=== PATIENT | male | born 1955 | race Caucasian/White ===

== ENCOUNTER 2019-03-20 09:45 | Day surgery (SDC) | payer BC ==
[2019-03-16 10:56] VITALS: BMI 24.3
[~2019-03-20 09:45] MED LIST: LACTATED RINGERS 1,000 ML IV SCH
[2019-03-20 10:59] VITALS: RESP 16; TEMP 98.4
[2019-03-20] MEDS ORDERED: LIDOCAINE 1% 20 ML VIAL (10MG/ML) FOR IV START INTRADERMA ONE (11:03)
[2019-03-20] MEDS ORDERED: PROPOFOL 10 MG/ML 20 ML VIAL IV ONE (11:25)
--- NOTE | 2019-03-20 12:13 | P.PCN ---
Date of Procedure: 03/20/19 Description of Procedure: BRIEF HISTORY: Patient is a 63-year-old pleasant male scheduled for an elective colonoscopy as a part of screening for malignant neoplasm colon. Patient reports last colonoscopy was 7-8 years ago. No family history of colon cancer, change in bowel habits or blood per rectum. PROCEDURE PERFORMED: Colonoscopy with polypectomy. PREOPERATIVE DIAGNOSIS: Screening for malignant neoplasm of the colon, last colonoscopy 7-8 years ago and normal per the patient's recollection. ESTIMATED BLOOD LOSS: Minimal. IV sedation per Anesthesia. PROCEDURE: After informed consent was obtained, the patient, was brought into the endoscopy unit. IV sedation was administered by Anesthesia under continuous monitoring. Digital rectal examination was normal. Initially the Olympus CF-190 flexible video colonoscope was then inserted in the rectum, gradually advanced into the c ecum without any difficulty. Careful examination was performed as the scope was gradually being withdrawn. Ileocecal valve and the appendiceal orifice were visualized and appeared normal, the terminal ileum intubated and appeared normal as well. Prep was excellent. Mucosa of the cecum, ascending colon, transverse colon, descending colon, sigmoid colon, and rectum appeared normal. A few scattered diverticula were noted in the sigmoid colon. 2 small transverse colon polyps measuring 5 and 6 mm removed with cold snare polypectomy. 2 diminutive descending colon polyps removed with cold forcep polypectomy measuring 2 and 3 mm. 2 diminutive rectal polyps measuring 1 and 2 mm with cold forcep polypectomy. Retroflexion was performed in the rectum and no lesions were seen. The patient tolerated the procedure well. IMPRESSION: 4 diminutive polyps removed with cold forcep polypectomy from the rectum to the descending colon. 2 diminutive transverse colon polyps measuring 5 and 6 mm removed with cold snare polypectomy. Mild sigmoid diverticulosis. RECOMMENDATIONS: Findings of this examination were discussed with the patient and his family. Okay to resume diet and medications. Await pathology from polypectomy. Anticipate repeat colonoscopy in 3-5 years pending pathology from polypectomies.
[2019-03-20 12:30] VITALS: BP 120/70; PULSE 70
== END 2019-03-20 12:46 | disposition home or self-care (01) ==
LOC: ORWHC2ENDO 09:45
PROVIDERS: ATTEND Internal Medicine
DX: Z12.11 Encounter for screening for malignant neoplasm of colon (principal); K63.5 Polyp of colon; D12.3 Benign neoplasm of transverse colon; K62.1 Rectal polyp; K57.30 Diverticulosis of large intestine without perforation or abscess without bleeding; L98.8 Other specified disorders of the skin and subcutaneous tissue; Z87.891 Personal history of nicotine dependence; Z79.818 Long term (current) use of other agents affecting estrogen receptors and estrogen levels; Z79.899 Other long term (current) drug therapy; Z79.52 Long term (current) use of systemic steroids; Z79.82 Long term (current) use of aspirin; Z96.652 Presence of left artificial knee joint; Z98.890 Other specified postprocedural states
CPT/HCPCS: 88305; 45380; 45385; J2704